=== PATIENT | female | born 1965 | race Caucasian/White ===

== ENCOUNTER → 2017-01-13 | Outpatient (CLI) | payer OTHER ==
[~2017-01-13] MED LIST: ASPIRINEC PO; HCTZ PO; NEURONTIN PO; ZOLOFT
--- NOTE | ~2017-01-13 | CT104 ---
[facility] A Service of [facility] RADIOLOGY TEXT RESULTS PATIENT: FORTUNATO AUGUSTE LOCATION: [facility] : 63 UNIT #: [id number] AGE: [address]: Hector Roberts MD SEX: F ORDER DR: [id number] [facility] [address] [place], [place] [address] [id number] O MR#: [id number] #: [id number] NAME: FORTUNATO AUGUSTE : 1965 SEX: F STUDY DATE/TIME: 01/13/2017 14:43 UNIT: [facility] ROOM: STUDY DESCRIPTION: CT Orbits Wo Contrast Attending Physician: Hector Roberts M.D. Referring Physician: Hector Roberts M.D. Ordering Physician: Hector Roberts M.D. Primary Care Physician: Mary Hernandez Aprn MEDICAL IMAGING REPORT This report is preliminary unless electronic signature is present EXAM Orbit CT without contrast. DATE OF STUDY 01/13/2017 PROCEDURE Axial unenhanced orbit CT with multiplanar reformats. This CT exam was performed with one or more of the following radiation dose reduction techniques: automatic exposure control, adjustment of mA and/or kV according to patient size, and iterative reconstruction. COMPARISON None. CLINICAL HISTORY Thyroid ophthalmopathy. Exophthalmos, blurred vision for 6 months. FINDINGS The bony margins of the orbits are normal. There is extraocular muscle enlargement bilaterally, most prominent in the medial rectus and also seen in the inferior and superior rectus muscles with relative sparing of the oblique muscles and lateral rectus muscles. The process is symmetric. The lacrimal glands and orbital fat appear normal. There is symmetric proptosis. IMPRESSION Symmetric proptosis with bilateral, fairly symmetrical ocular muscle enlargement with relative sparing of the lateral rectus. No other orbital mass is seen and the bony orbital margins are normal. The adjacent paranasal sinuses are unremarkable, though the frontal sinuses are minimally pneumatized. [facility] A Service [facility] RADIOLOGY TEXT RESULTS PATIENT: FORTUNATO AUGUSTE LOCATION: [facility] : 63 UNIT #: [id number] AGE: [address]: Hector Roberts MD SEX: F ORDER DR: Dictated by... Manuel Bailey M.D. THIS IS AN ELECTRONICALLY VERIFIED REPORT Manuel Bailey M.D. at 01/21/2017 4:56 PM ANNE/martin TD: 01/14/2017 00:23 JOB #: [id number] MEDICAL IMAGING REPORT Page 1 of 1 COPY
== END | disposition home or self-care (01) ==
LOC: CCAT 14:22
DX: E05.00 Thyrotoxicosis with diffuse goiter without thyrotoxic crisis or storm (principal); H05.20 Unspecified exophthalmos; M62.89 Other specified disorders of muscle
CPT/HCPCS: 70480